=== PATIENT | female | born 1955 | race Hispanic/Latino ===

== ENCOUNTER 2017-09-07 14:25 | Outpatient (CLI) | payer OTHER ==
--- NOTE | 2017-09-07 17:05 | RAD ---
RIGHT KNEE FOUR VIEWS: 09/07/17 No fracture, dislocation, or joint space narrowing was seen. There may be a very tiny joint effusion. Otherwise, the exam was unremarkable. IMPRESSION: Possible tiny joint effusion, otherwise, no acute findings. POS: HOME
== END 2017-09-07 14:26 | disposition home or self-care (01) ==
LOC: BURRAD 14:25
PROVIDERS: ATTEND Physician Assistant
DX: S83.91XD Sprain of unspecified site of right knee, subsequent encounter (principal)